=== PATIENT | male | born 1970 | race Hispanic/Latino ===

== ENCOUNTER 2017-07-11 04:37 | Emergency (ER) | payer SELFPAY ==
[2017-07-11] MEDS ORDERED: Ibuprofen 800 MG TAB ONE (04:58)
== END 2017-07-11 06:12 | disposition home or self-care (01) ==
LOC: ERS 04:37
DX: J11.1 Influenza due to unidentified influenza virus with other respiratory manifestations (principal); I10 Essential (primary) hypertension
CPT/HCPCS: 93005